=== PATIENT | female | born 1960 | race Caucasian/White ===

== ENCOUNTER → 2020-04-20 | Outpatient (CLI) | payer OTHER ==
[~2020-04-20] MED LIST: COREG 3.125M3.125 MG PO; ELIQUIS2.5 MG PO; FEOSOL325 MG PO; FISH OIL 1,0001 EAC1 PO; LEXAPRO10 MG PO; LISINOPRIL-HCT1 EAC1 PO; NORVASC10 MG PO; PERCOCET 10-321 EACH PO; PROTONIX40 MG PO; TYLENOL ARTHRITIS PO; VITAMIN D350000 UNIT PO
== END ==
LOC: EMI 08:44
DX: H93.11 Tinnitus, right ear (principal); Z53.8 Procedure and treatment not carried out for other reasons

== ENCOUNTER → 2020-04-20 | Outpatient (CLI) | payer OTHER | LOC: LAB 09:41 | DX: H93.19 Tinnitus, unspecified ear (principal); H90.41 Sensorineural hearing loss, unilateral, right ear, with unrestricted hearing on the contralateral side | CPT/HCPCS: 36415; 82565; 84520 ==

== ENCOUNTER → 2020-04-22 | Outpatient (CLI) | payer OTHER | LOC: MRI 08:47 | DX: H90.41 Sensorineural hearing loss, unilateral, right ear, with unrestricted hearing on the contralateral side (principal); H93.11 Tinnitus, right ear; H74.91 Unspecified disorder of right middle ear and mastoid; R93.7 Abnormal findings on diagnostic imaging of other parts of musculoskeletal system | CPT/HCPCS: 70553; A9577 ==

== ENCOUNTER → 2020-10-20 | Outpatient (CLI) | payer OTHER | LOC: EXRD 11:01 | DX: M18.0 Bilateral primary osteoarthritis of first carpometacarpal joints (principal); R76.8 Other specified abnormal immunological findings in serum | CPT/HCPCS: 73130 ==